=== PATIENT | male | born 1985 | race Caucasian/White ===

== ENCOUNTER 2025-02-08 22:24 | Emergency (ER) | payer MEDICAID, SELFPAY ==
[2025-02-08 22:34] VITALS: BP 116/76; PULSE 118; RESP 16; TEMP 36.5; O2SAT 98; BMI 22.4
--- NOTE | 2025-02-08 23:06 | ED_ITS ---
HPI - General Adult General Date Seen: 02/08/25 Chief complaint: Diabetic Related Problem Stated complaint: wants insulin, out for 3 days Time Seen by Provider: 02/08/25 22:43 History of Present Illness HPI narrative: Patient is a 39-year-old male who is here because he says he needs insulin. He tells me he was recently diagnosed with diabetes a couple weeks ago while in [facility]. He does not know anything more about that. He says they were giving him insulin when he was in [facility], but he was taking metformin more recently. He is homeless, he tells me that he has been bingeing on alcohol and weed, he is scheduled to start rehab and the facility can not take him until Tuesday, so he says he was down here with a friend and is staying at a hotel. He otherwise has been batting around throughout the [facility]. He says he does have a primary doctor in [facility] and has an appointment with them this coming . He says he left his metformin at somebody's house and he does not know if he is going to see them again. He became concerned that he might need insulin. He says he feels fine. He has not checked any blood sugars because he does not have a machine but says he does plan to buy 1 in the next couple of days. He acknowledges that he has ADHD and problems with being overly intense with people and apologizes several times for his demeanor toward me. Related Data Previous Rx's ?Medication ?Instructions ?Recorded metformin 500 mg tablet 500 mg PO BID #60 tabs 02/08/25 Allergies Allergy/AdvReac Type Severity Reaction Status Date / Time acetaminophen Allergy Mild Verified 02/08/25 22:41 ibuprofen Allergy Mild Verified 02/08/25 22:41 Review of Systems Status of ROS: Reports: 6 or more systems reviewed and unremarkable except as noted in History and below Exam Narrative: Exam Narrative: Vital signs reviewed In general, alert, nontoxic mid age male. He has mild psychomotor agitation, but generally cooperative, reasonably well groomed. Head: Normocephalic, atraumatic. Eyes: Sclera clear. Pupils equal and reactive. ENT: Mucous membranes moist. Neck: Supple without adenopathy. Heart: Regular rate and rhythm without murmur. Lungs: Clear. No increased work of breathing, crackles or wheezes. Abdomen: Soft, nontender to palpation. Extremities: Well perfused, pulses intact. No significant edema. Neurologic: Alert, conversant. Speech fluent, face symmetric. Moves all extremities equally. Skin: Warm, dry well perfused. Affect: Normal. Const: Vital Signs, click to edit/add: Vital Signs - 24 hr 02/08/25 22:34 Temperature 97.7 F Pulse Rate [Left P ulse Oximeter] 118 H Respiratory Rate 16 Blood Pressure [Ri ght Upper Arm] 116/76 Pulse Oximetry 98 Oxygen Delivery Me thod Room Air Course Course ED Course: He is not able to tell me much about his diabetes diagnosis. Discussed with him I certainly do not feel comfortable starting insulin for him without knowing more about his diabetes and without him having a reliable way to check his blood sugars. I suggested that we start by checking some labs and can not get the lay of the land. He said he really does not feel comfortable having blood drawn, he does not feel like having any needle pokes night, any generally just does not want a stay in the hospital. He is feeling kind of antsy. He does not strike me as being significantly altered or intoxicated, and I do not think there would be any reason to suspect he should be held against his will. I did tell him that I would feel comfortable prescribing metformin so that he can at least be on that until he sees his primary doctor. It sounds as if at least by his telling he has plans next week to start rehab and see primary care, if he follows through with that he should have a reasonably good upcoming plan. Discussed with him he can certainly return any time if he changes his mind. Otherwise, he is discharged, metformin prescription sent. Vital Signs Vital signs: Initial Vital Signs Temperature 97.7 F 02/08/25 22:34 Temperature Source Temporal Artery Scan 02/08/25 22:34 Pulse Rate 118 H 02/08/25 22:34 Pulse Rhythm Regular 02/08/25 22:34 Respiratory Rate 16 02/08/25 22:34 Blood Pressure 116/76 02/08/25 22:34 Blood Pressure Mean 89 02/08/25 22:34 Blood Pressure Position Sitting 02/08/25 22:34 Pulse Oximetry 98 02/08/25 22:34 Oxygen Delivery Method Room Air 02/08/25 22:34 Vital Signs Temperature 97.7 F 02/08/25 22:34 Pulse Rate 118 H 02/08/25 22:34 Respiratory Rate 16 02/08/25 22:34 Blood Pressure 116/76 02/08/25 22:34 Pulse Oximetry 98 02/08/25 22:34 Oxygen Delivery Method Room Air 02/08/25 22:34 Temperature 97.7 F 02/08/25 22:34 Pulse Rate 118 H 02/08/25 22:34 Respiratory Rate 16 02/08/25 22:34 Blood Pressure 116/76 02/08/25 22:34 Pulse Oximetry 98 02/08/25 22:34 Oxygen Delivery Method Room Air 02/08/25 22:34 Discharge Plan Discharge Clinical Impression: Medication refill Patient Disposition: Home, Self-Care Condition: Stable Instructions: Medicine Refill (ED) Activity Level: No Restrictions Discharge Diet: Regular Prescriptions: New metformin 500 mg tablet 500 mg PO BID Qty: 60 2RF Stand Alone Forms: MyHealth Info Instructions
== END 2025-02-08 23:03 | disposition home or self-care (01) ==
LOC: ED 23:00
PROVIDERS: Emergency Provider Emergency Medicine
DX: E11.9 Type 2 diabetes mellitus without complications (principal); F10.90 Alcohol use, unspecified, uncomplicated; F12.90 Cannabis use, unspecified, uncomplicated; F90.9 Attention-deficit hyperactivity disorder, unspecified type; Z59.00 Homelessness unspecified; Z76.0 Encounter for issue of repeat prescription; Z91.148 Patient's other noncompliance with medication regimen for other reason
CPT/HCPCS: 99283; 99284